=== PATIENT | female | born 1990 | race Two or more races ===

== ENCOUNTER 2021-03-20 20:10 | Emergency (ER) | payer OTHER ==
[~2021-03-20] VITALS: Ht 170.2 cm; Wt 63.5 kg
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
[2021-03-20] MEDS ORDERED: ACETAMINOPHEN 325 MG TABLET ONE (21:24)
[2021-03-20] MEDS: ACETAMINOPHEN 325 MG TABLET PO ONE (21:27)
--- NOTE | 2021-03-20 22:01 | NUR ---
CALLED RAD/X RAY NO ANSWER
[2021-03-20] MEDS ORDERED: IOHEXOL-300 100 ML VIAL IV ONE (22:05)
[2021-03-20] MEDS ORDERED: IV NS 0.9% 250 ML IV ONE (22:06)
--- NOTE | 2021-03-20 22:09 | NUR ---
PATIENT TAKEN TO CT
--- NOTE | 2021-03-21 00:26 | NUR ---
Patient discharged to home in stable condition. Written and verbal after care instructions given. Patient verbalizes understanding of instruction.
[2021-03-21 00:55] VITALS: BP 123/70
== END 2021-03-21 00:26 | disposition home or self-care (01) ==
LOC: ER 20:39
DX: S80.01XA Contusion of right knee, initial encounter (principal); R10.31 Right lower quadrant pain; M79.644 Pain in right finger(s); Z60.2 Problems related to living alone; V49.49XA Driver injured in collision with other motor vehicles in traffic accident, initial encounter; Y93.89 Activity, other specified; Y92.413 State road as the place of occurrence of the external cause; Y99.8 Other external cause status
CPT/HCPCS: 71045; 73130; 73564; 74177; 99285; J7050; Q9967